=== PATIENT | female | born 1975 | race Caucasian/White ===

== ENCOUNTER → 2017-05-13 09:46 | Outpatient (CLI) | payer OTHER, SELFPAY ==
--- NOTE | 2017-05-13 09:52 | MM_ITS ---
MM Dig SC mamm implant BI CAD CAD Screening COMPARISON: None, this is baseline INDICATION: There is no personal or family history of breast cancer. Patient has bilateral breast implants. TECHNIQUE: Standard CC and MLO images were obtained. R2 CAD reviewed. FINDINGS: Standard MLO and CC views were obtained along with Fidelina views as well. The bilateral breast implants are noted both intact with no evidence of leakage. Mild heterogenic fibroglandular densities are seen in the [place] breast tissue around the implants. There is a single more marker on each breast. There is a benign-appearing calcification right breast. There is no suspicious lesion and there are no suspicious microcalcifications. IMPRESSION: Moderate breast density with intact breast implants as noted and no suspicious lesion seen BI-RADS Category: 2 Benign Finding(s) RECOMMENDED FOLLOW-UP: 1YR - 1 YEAR FOLLOW-UP (A letter has been sent to the patient regarding results of the study.)
== END ==
PROVIDERS: Family Provider Family Medicine; PCP Family Medicine; Visit Provider Nurse Practitioner Obstetrics & Gynecology
DX: Z12.31 Encounter for screening mammogram for malignant neoplasm of breast (principal)
CPT/HCPCS: 77067

== ENCOUNTER → 2018-07-17 11:34 | Outpatient (CLI) | payer OTHER, SELFPAY ==
--- NOTE | 2018-07-17 11:46 | XR_ITS ---
XR chest 2V HISTORY: ITS.REASON: DYSPNEA ON EXERTION ORDERING PHYSICIAN: Darell Dickson MD PATIENT AGE: 43 years COMPARISON: None FINDINGS: The cardiomediastinal silhouette and pulmonary vascularity are within normal limits. The lungs are clear without infiltrates, suspicious nodules, or pleural effusions. No acute bony abnormalities. IMPRESSION: Negative chest, no acute finding
[2018-07-17 12:41] LABS: Basophils % 0.3 % (0.1-2.0); Eosinophils # 0.1 K/mm3 (0.0-0.4); Eosinophils % 0.7 % (0.1-12.0); Hematocrit 37.9 % (37.0-47.0); Hemoglobin 12.7 g/dL (12.2-16.2); Lymphocytes % 28.5 % (10-50); Mean Corpuscular HGB Conc 33.4 g/dL (31.8-35.4); Mean Corpuscular Hemoglobin 30.3 pg (27.0-31.2); Mean Corpuscular Volume 90.8 fl (81-99); Mean Platelet Volume 7.1 fl (7.4-10.4); Monocytes # 0.3 K/mm3 (0.1-1.0); Monocytes % 4.5 % (1.7-9.3); Neutrophils # 4.7 K/mm3 (1.8-7.8); Platelet Count 298 K/mm3 (142-424); Red Blood Count 4.17 M/mm3 (4.20-5.40); White Blood Count 7.1 K/mm3 (4.8-10.8)
[2018-07-17 15:14] LABS: Alanine Aminotransferase 22 U/L (12-78); Albumin Level 3.5 gm/dL (3.4-5.0); Albumin/Globulin Ratio 0.9 (1.1-1.8); Alkaline Phosphatase 64 U/L (46-116); Anion Gap 12.4 mEq/L (5-15); Aspartate Amino Transferase 22 U/L (15-37); Bilirubin,Total 0.3 mg/dL (0.2-1.0); Blood Urea Nitrogen 15 mg/dL (7-18); Calcium 8.8 mg/dL (8.5-10.1); Carbon Dioxide 28 mmol/L (21.0-32.0); Chloride 103 mmol/L (98-107); Creatinine,Serum 0.92 mg/dL (0.55-1.02); Estimated Glomerular Filt Rate 67 ml/min (>60); GFR (African American) 81 ML/MIN (>60); Globulin 3.7 gm/dl (1.3-3.2); Glucose 92 mg/dL (74-106); Magnesium 1.9 mg/dL (1.4-2.2); Potassium 4.4 mmoL/L (3.5-5.1); Sodium 139 mmol/L (136-145); Thyroid Stimulating Hormone 1.77 uIU/ml (0.358-3.740); Total Protein,Serum 7.2 gm/dL (6.4-8.2)
== END ==
PROVIDERS: Visit Provider Internal Medicine Adolescent Medicine
DX: R30.0 Dysuria (principal); R06.09 Other forms of dyspnea; R42 Dizziness and giddiness
CPT/HCPCS: 36415; 71046; 80053; 83735; 84443; 85025; 87086; 87088; 87186

== ENCOUNTER → 2019-09-29 07:44 | Outpatient (CLI) | payer BC, SELFPAY ==
--- NOTE | 2019-09-29 07:49 | MM_ITS ---
PROCEDURE: MM DIG MAMM DX BI IMPLANT CAD Digital Breast Tomosynthesis Included CLINICAL INDICATION: SCREENING There is a history of breast cancer patient's maternal grandmother diagnosed after menopause. The patient has bilateral breast implants. COMPARISON: SCIMPBI MM Dig SC mamm implant BI CAD from 05/13/2017 TECHNIQUE: Standard CC and MLO images and 3D Tomosynthesis was obtained. R2 CAD reviewed. FINDINGS: Standard views of both breast were obtained along with Fidelina views. Both breast implants appear intact with no evidence of leakage. There is minor crinkling of the border of the left breast implant. There is moderate heterogenic fibroglandular densities in the [place] breast tissue around each implant stable unchanged in appearance from the previous exam. There is a benign-appearing calcification right breast. There is no suspicious lesion in either breast and no suspicious microcalcifications. IMPRESSION: Stable exam with no suspicious lesions seen BI-RAD Category: 2 Benign Finding(s) FOLLOW-UP: 1YR 1 Year Follow-up (A letter has been sent to the patient regarding results of the study.) Dictated by: Dr. Jose Daniel Rodriguez MD 10/01/2019 08:[address] Jose Daniel Rodriguez MD in [place] 10/01/2019 08:37
== END ==
PROVIDERS: PCP Family Medicine; Visit Provider Family Medicine
DX: Z12.39 Encounter for other screening for malignant neoplasm of breast (principal)
CPT/HCPCS: 77062; 77066; G0279

== ENCOUNTER 2020-09-08 11:18 | Emergency (ER) | payer BC, SELFPAY ==
[2020-09-08 11:19] VITALS: BP 122/80; PULSE 85; RESP 18; TEMP 36.9; O2SAT 98; BMI 23.3
[2020-09-08 11:34] LABS: Apearance,Urine Cloudy (Clear); Color,Urine Yellow (Yellow)
[2020-09-08 11:35] LABS: Bilirubin,Urine Negative (Negative); Blood, Urine 4+ (Negative); Glucose,Urine (UA) Negative (Negative); Ketones,Urine Negative (Negative); PH,Urine 6.5 (5.0-8.5); Protein,Urine 1+ (Negative); UTC Leukocyte Esterase,Urine 2+ (Negative); Urobilinogen,Urine 1 EU/dl (0.2)
[2020-09-08 11:36] LABS: UTC Nitrate,Urine Negative (Negative)
[2020-09-08 11:39] VITALS: BP 120/79; PULSE 82; RESP 18; TEMP 36.9
--- NOTE | 2020-09-08 11:45 | HMH.EDUTC ---
[facility] – [place] Disposition Clinical Impression: UTI (urinary tract infection) Qualifiers: Urinary tract infection type: site unspecified Hematuria presence: without hematuria Qualified Code(s): N39.0 - Urinary tract infection, site not specified Disposition: Home, Self-Care Condition on Discharge: Good Instructions: Urinary Tract Infection, DI for Urinary Tract Infection (UTI) Additional Instructions: Drink plenty of fluids. Take tylenol or ibuprofen for pain or fever. Take the medications as directed. Follow up with your regular doctor. GO TO THE ER FOR ANY WORSENING SYMPTOMS The pyridium will make your urine turn orange, this is an expected side effect. It will stain your clothes if it comes into contact with them Prescriptions: Sulfamethoxazole/Trimethoprim [Bactrim DS tablet] 1 each PO BID 7 Days #14 tab Transmission Status: Received by [facility] Fluconazole [Diflucan 150mg tab] 150 mg PO ONCE #1 tab Transmission Status: Received by [facility] Phenazopyridine HCl [Pyridium 200mg Tablet] 200 pow PO TID #6 tab Transmission Status: Received by [facility] Referrals: Darell Mackay MD [Primary Care Provider] - Time of Disposition: 11:49 Medical Decision Making - Medical Records Medical records reviewed: No: I reviewed the patient's medical records. - Blas Inquiry Pt receiving controlled substance: No Vital Signs: 09/08/20 11:19 09/08/20 11:39 Temperature 98.4 F 98.4 F Temperature Source Oral Pulse Rate 82 Pulse Rate [Right] 85 Respiratory Rate 18 18 Blood Pressure 120/79 Blood Pressure [Right Arm] 122/80 Blood Pressure Mean [Right Arm] 94 Blood Pressure Source [Right Arm] Automatic Cuff Blood Pressure Position [Right Arm] Sitting 02 Sat by Pulse Oximetry 98 Oxygen Delivery Method Room Air - Lab Data Lab results reviewed: Yes: I reviewed the patient's lab results. Lab Results 09/08/20 11:30: Urine Color Yellow, Urine Appearance Cloudy, Urine pH 6.5, Ur Specific [place] 1.020, Urine Protein 1+, Urine Glucose (UA) Negative, Urine Ketones Negative, Urine Blood 4+, Urine Nitrate Negative, Urine Bilirubin Negative, Urine Urobilinogen 1, Ur Leukocyte Esterase 2+ A Orders (Tests/Meds): ORDERS Category Date Time Status Urine Culture Stat Micro 09/08/20 11:38 Results [facility] [place] HPI - General Stated complaint: possible UTI Time Seen by Provider: 09/08/20 11:46 Mode of Arrival: Ambulatory Source of Information: Patient Limitations: No Limitations Description of Symptoms (Recalled from Triage Doc. by RN): pt c/o of pain with urinating. pt also states shes been having yeast infections. she has completed the monistat tx, but would like some diflucan. HEENT Symptoms (Recalled from RN notes): No Resp Symptoms (Recalled from RN notes): No Skin Symptoms (Recalled from RN notes): No MS Symptoms (Recalled from RN notes): No Functional Status (Recalled from RN notes): na - History of Present Illness Provider Complaint: She states that for the past 2 days she has had burning with urination. - Related Data Previous Rx's Medication Instructions Recorded Fluconazole [Diflucan 150mg tab] 150 mg PO ONCE #1 tab 09/08/20 Phenazopyridine HCl [Pyridium 200 pow PO TID #6 tab 09/08/20 200mg Tablet] Sulfamethoxazole/Trimethoprim 1 each PO BID 7 Days #14 tab 09/08/20 [Bactrim DS tablet] Allergies Allergy/AdvReac Type Severity Reaction Status Date / Time No Known Allergies Allergy Verified 09/08/20 11:20 - Worker's Comp Is this a Worker's Comp case?: No [facility] History - Hepatitis A Screen Drug use history?: No High risk sexual behaviors?: No History of sexually transmitted infection?: No Currently employed?: No Childcare worker?: No Do you have indoor plumbing?: Yes Do you have electricity?: Yes Attestation statement:: This patient has been screened for Hepatitis A risk factors. I have reviewed the patient's past medica
== END 2020-09-08 11:54 | disposition home or self-care (01) ==
PROVIDERS: Emergency Provider Nurse Practitioner Family; PCP Family Medicine
DX: N39.0 Urinary tract infection, site not specified (principal)
CPT/HCPCS: 81003; 87086; 87088; 87186; 99202; G0463

== ENCOUNTER 2020-10-13 15:07 | Emergency (ER) | payer BC, SELFPAY ==
[2020-10-13 15:10] VITALS: BP 137/80; PULSE 81; RESP 18; TEMP 36.9; O2SAT 99; BMI 21.6
--- NOTE | 2020-10-13 15:23 | HMH.EDUTC ---
[facility] – [place] Disposition Clinical Impression: UTI (urinary tract infection) Qualifiers: Urinary tract infection type: acute cystitis Hematuria presence: with hematuria Qualified Code(s): N30.01 - Acute cystitis with hematuria Disposition: Home, Self-Care Condition on Discharge: Good Instructions: DI for Urinary Tract Infection (UTI) Additional Instructions: Increase fluids, water and not soda or tea. Can drink cranberry juice or cranberry extract. White front to back Wear cotton underwear Empty bladder after intercourse Start antibiotics immediately and make sure you take the full course although you may start to see improvement over the next 48 hours. You can eat yogurt or take probiotics to decrease diarrhea or yeast infection caused by the antibiotic Be sure to follow-up anytime for new or worsening symptoms in 48 hours for wound urine culture results be sure to let you PCP no recent urine for culture so they can request records and ensure that you have appropriate antibiotic if you are not getting better or getting worse. If symptoms worsen or do not improve return or be seen in the ER. Follow-up with primary care this week. Prescriptions: cephALEXin [Cephalexin 500mg Tab] 500 mg PO BID 7 Days #14 tab Prescription Printed Fluconazole [Diflucan 100mg tablet] 100 mg PO ONCE 1 Days #2 tab Prescription Printed Referrals: Darell Mackay MD [Primary Care Provider] - Time of Disposition: 15:35 Medical Decision Making - Blas Inquiry Pt receiving controlled substance: No Vital Signs: 10/13/20 15:10 10/13/20 15:28 Temperature 98.4 F 98.4 F Temperature Source Oral Pulse Rate 81 Pulse Rate [Right Brachial] 81 Respiratory Rate 18 18 Blood Pressure 137/80 Blood Pressure [Right Arm] 137/80 Blood Pressure Mean [Right Arm] 99 Blood Pressure Source [Right Arm] Automatic Cuff Blood Pressure Position [Right Arm] Sitting 02 Sat by Pulse Oximetry 99 Oxygen Delivery Method Room Air Orders (Tests/Meds): ORDERS Category Date Time Status Urine Culture Stat Micro 10/13/20 15:22 Ordered [facility] [place] HPI - General Chief complaint: Urgent Treatment Center Stated complaint: poss UTI Time Seen by Provider: 10/13/20 15:23 Mode of Arrival: Ambulatory Source of Information: Patient Limitations: No Limitations Description of Symptoms (Recalled from Triage Doc. by RN): PATIENT C/O FREQUENT AND PAINFUL URINATION X 2 DAYS HEENT Symptoms (Recalled from RN notes): No Resp Symptoms (Recalled from RN notes): No Skin Symptoms (Recalled from RN notes): No MS Symptoms (Recalled from RN notes): No Functional Status (Recalled from RN notes): WNL - History of Present Illness Provider Complaint: 45 yr old female presents for burning with urination,freq, urgentancy, and pain with urination - Related Data Previous Rx's Medication Instructions Recorded Fluconazole [Diflucan 150mg tab] 150 mg PO ONCE #1 tab 09/08/20 Phenazopyridine HCl [Pyridium 200 pow PO TID #6 tab 09/08/20 200mg Tablet] Sulfamethoxazole/Trimethoprim 1 each PO BID 7 Days #14 tab 09/08/20 [Bactrim DS tablet] Fluconazole [Diflucan 100mg tablet] 100 mg PO ONCE 1 Days #2 tab 10/13/20 cephALEXin [Cephalexin 500mg Tab] 500 mg PO BID 7 Days #14 tab 10/13/20 Allergies Allergy/AdvReac Type Severity Reaction Status Date / Time No Known Allergies Allergy Verified 09/08/20 11:20 - Worker's Comp Is this a Worker's Comp case?: No [facility] History - Hepatitis A Screen Drug use history?: No High risk sexual behaviors?: No History of sexually transmitted infection?: No Currently employed?: No Childcare worker?: No Do you have indoor plumbing?: Yes Do you have electricity?: Yes Attestation statement:: This patient has been screened for Hepatitis A risk factors. I have reviewed the patient's past medical history: Yes - Social History Alcohol Intake: never Occupational Status: other ROS Obtained: Yes Systems reviewed as appropriate & no additio
[2020-10-13 15:28] VITALS: BP 137/80; PULSE 81; RESP 18; TEMP 36.9; O2SAT 99
[2020-10-13 15:48] LABS: Apearance,Urine Clear (Clear); Bilirubin,Urine Negative (Negative); Blood, Urine 2+ (Negative); Color,Urine Dark Yellow (Yellow); Glucose,Urine (UA) Negative (Negative); Ketones,Urine Negative (Negative); Protein,Urine Negative (Negative); UTC Leukocyte Esterase,Urine Trace (Negative); UTC Nitrate,Urine Negative (Negative); Urobilinogen,Urine 0.2 EU/dl (0.2)
== END 2020-10-13 15:40 | disposition home or self-care (01) ==
PROVIDERS: Emergency Provider Nurse Practitioner Family; PCP Family Medicine
DX: N30.01 Acute cystitis with hematuria (principal)
CPT/HCPCS: 81003; 87086; 87088; 87186; 99202; G0463

== ENCOUNTER 2020-11-09 21:18 | Emergency (ER) | payer BC, SELFPAY ==
[2020-11-09 21:19] VITALS: BP 125/85; PULSE 82; RESP 16; TEMP 37; O2SAT 96; BMI 20.7
[2020-11-09 22:36] LABS: Microscopic, Urine URINE MICROSCOPIC (MICROSCOPIC)
[2020-11-09 22:38] LABS: Appearance,Urine CLOUDY (Clear); Bilirubin,Urine Negative (Negative); Blood, Urine 2+ (Negative); Color,Urine YELLOW (Yellow); Glucose,Urine (UA) Negative (Negative); Ketones,Urine Negative (Negative); Leukocyte Esterase,Urine 1+ (Negative); Nitrate,Urine POSITIVE (Negative); Protein,Urine 2+ (Negative); Specific Gravity, Urine >= 1.030 (1.005-1.030); Urobilinogen,Urine 0.2 EU/dl (0.2)
[2020-11-09 22:54] LABS: Bacteria,Urine 2+ /lpf; RBC,Urine 20-50 #/hpf (0-3); WBC,Urine 50-100 #/hpf (0-3)
--- NOTE | 2020-11-09 23:20 | HMH.EDGENADL ---
ED Disposition Clinical Impression: Pyelonephritis UTI (urinary tract infection) Qualifiers: Urinary tract infection type: acute cystitis Hematuria presence: with hematuria Qualified Code(s): N30.01 - Acute cystitis with hematuria Disposition: Home, Self-Care Condition on Discharge: Good Instructions: DI for Urinary Tract Infection (UTI), DI for Urinary Tract Infection in Children Prescriptions: Cefdinir [Omnicef 300mg Capsule] 300 mg PO BID #20 cap Transmission Status: [facility] to [facility] Ondansetron [Zofran 4mg ODT] 4 mg PO TIDP PRN 3 Days #12 tab PRN Reason: Nausea Transmission Status: Pending to [facility] Referrals: Darell Dickson MD [Primary Care Provider] - - Critical Care Critical Care Time: No Attestation: On 11/09/20, the high probability of a clinically significant, sudden or life threatening deterioration of the following system(s) required my full and direct attention, intervention and personal management. The time I documented below is in addition to time spent performing reported procedures but includes the following listed in this critical care notation. Medical Decision Making - Blas Inquiry Pt receiving controlled substance: No Vital Signs: 11/09/20 21:19 Temperature 98.6 F Temperature Source Oral Pulse Rate [Right Brachial] 82 Respiratory Rate 16 Blood Pressure [Right Arm] 125/85 Blood Pressure Mean [Right Arm] 98 02 Sat by Pulse Oximetry 96 Oxygen Delivery Method Room Air - Lab Data Lab Results 11/09/20 21:24: Urine Color Yellow, Urine Appearance Cloudy, Urine pH 6.0, Ur Specific [place] >= 1.030, Urine Protein 2+, Urine Glucose (UA) Negative, Urine Ketones Negative, Urine Blood 2+, Urine Nitrate Positive, Urine Bilirubin Negative, Urine Urobilinogen 0.2, Ur Leukocyte Esterase 1+ A, Urine RBC 20-50, Urine WBC 50-100, Ur Squamous Epith Cells 3-5, Urine Bacteria 2+ Orders (Tests/Meds): ED MEDICATIONS Discontinued Medications Generic Name Dose Route Start Last Admin Trade Name Freq PRN Reason Stop Dose Admin Ibuprofen 800 mg 11/09/20 22:31 11/09/20 22:35 Ibuprofen 400 Mg Tablet PO 11/09/20 22:32 800 mg ONCE ONE Administration ORDERS Category Date Time Status Urine Culture Stat Micro 11/09/20 21:24 Received Medical Decision Narrative: The patient is a 45-year-old female who presents to the emergency department with suprapubic pain, dysuria, frequency, urgency for 1-1/2 weeks and right flank pain for 1 day. Differential gnosis includes cystitis, pyelonephritis, or lithiasis. Given this plan to obtain urinalysis. Patient is overall very well-appearing with stable vital signs. She is afebrile. Urinalysis shows evidence of a urinary tract infection. Given the patient's history and appearance I have low suspicion for nephrolithiasis and believe hematuria is due to a urinary tract infection. She has tubal ligation. The patient will be discharged with cefdinir and Zofran for nausea. She was given strict return precautions. Will follow up with her primary care doctor. General Adult HPI - General Chief complaint: Urogenital-Female Stated complaint: possible uti or kidney infection Time Seen by Provider: 11/09/20 22:21 Mode of Arrival: Ambulatory Source of Information: Patient Limitations: No Limitations Description of Symptoms (Recalled from ER Triage Doc. by RN): pt here for possible UTI, c/o pain in lower back and left side. has significant hx of UTI's - History of Present Illness HPI narrative: 45-year-old female who presents to the emergency department with 1 and half weeks of dysuria, urgency, frequency and lower abdominal cramping. She reports today that she also developed right flank pain. She has had 3 UTIs in the last few months. She denies fever or chills. She is tolerating normal p.o. - Related Data Previous Rx's Medication Instructions Recorded Cefdinir [Omnicef 300mg Capsule]
[2020-11-09 23:39] VITALS: BP 124/74; PULSE 85; RESP 16; TEMP 37; O2SAT 99
== END 2020-11-09 23:40 | disposition home or self-care (01) ==
PROVIDERS: Emergency Provider Emergency Medicine; PCP Internal Medicine Adolescent Medicine
DX: N12 Tubulo-interstitial nephritis, not specified as acute or chronic (principal); N30.01 Acute cystitis with hematuria
CPT/HCPCS: 81001; 87086; 87088; 87186; 99282

== ENCOUNTER 2020-12-08 14:09 | Emergency (ER) | payer BC, SELFPAY ==
[2020-12-08 16:00] VITALS: BP 119/72; PULSE 91; RESP 18; TEMP 36.9; O2SAT 99; BMI 21.6
--- NOTE | 2020-12-08 16:32 | HMH.EDUTC ---
[facility] [place] Impression: UTI (urinary tract infection) Qualifiers: Urinary tract infection type: site unspecified Hematuria presence: with hematuria Qualified Code(s): N39.0 - Urinary tract infection, site not specified Disposition: Home, Self-Care Condition on Discharge: Good Instructions: Urinary Tract Infection, DI for Urinary Tract Infection (UTI), Nitrofurantoin Additional Instructions: *Increase fluids. Water not Soda or Tea *Start antibiotic immediately and be sure to take as ordered for the FULL length of time although you should start to see improvement over the next 48 hours *Pyridium as needed Remember this medication will turn your urine [place]. This is normal but it will stain what ever it gets on *You should not use Pyridium for more than 48 hours. If so , follow up with your primary physician to review urine culture and ensure that antibiotic is adequate for infection *Be SURE to follow up anytime for new or worsening symptoms with your family doctor. AND in 48 hours for urine culture results with your family doctor, if you do not have a doctor then you may call back to the [facility] for urine culture results and further treatment. We do recommend that you choose and establish care with a Primary Care Physician. AND follow up with them in 10-14 days to repeat UA to ensure infection is resolved and blood no longer present *Be sure to let your PCP know that we sent urine cultures from the [facility] so they can follow up to ensure that you area the on the correct antibiotic Call your doctor office and make appointment for 48 hours (2 days from today) to follow up and get the results of your urine culture and further treatment Prescriptions: Nitrofurantoin Monohyd/M-Cryst [Macrobid 100 mg Capsule] 100 mg PO BID 10 Days #20 cap Transmission Status: Pending to [id number] Phenazopyridine HCl [Pyridium 200mg Tablet] 200 pow PO TID #6 tab Transmission Status: Pending to [id number] Referrals: Darell Mackay MD [Primary Care Provider] - As needed Time of Disposition: 16:39 Medical Decision Making - Blas Inquiry Pt receiving controlled substance: No Blas was queried for this patient: No Vital Signs: 12/08/20 16:00 Temperature 98.5 F Temperature Source Oral Pulse Rate [Right Brachial] 91 H Respiratory Rate 18 Blood Pressure [Right Arm] 119/72 Blood Pressure Mean [Right Arm] 87 Blood Pressure Source [Right Arm] Automatic Cuff Blood Pressure Position [Right Arm] Sitting 02 Sat by Pulse Oximetry 99 Oxygen Delivery Method Room Air - Lab Data Lab results reviewed: Yes: I reviewed the patient's lab results. [facility] [place] - General Stated complaint: possible UTI Time Seen by Provider: 12/08/20 16:33 Mode of Arrival: Ambulatory Source of Information: Patient Limitations: No Limitations Description of Symptoms (Recalled from Triage Doc. by RN): PATIENT STATES SHE HAS HAD A UTI EACH MONTH FOR THE LAST 4 MONTHS. C/O CONSTANT ITCHING TO [place] AREA HEENT Symptoms (Recalled from RN notes): No Resp Symptoms (Recalled from RN notes): No Skin Symptoms (Recalled from RN notes): No MS Symptoms (Recalled from RN notes): No Functional Status (Recalled from RN notes): WNL - History of Present Illness Provider Complaint: Patient states that she has been having UTI on and off for the last few months and has taken several different medications but feels like it is not clearing up well States that she has burning with urination and feeling of discomfort after and today she was still having discomfort so she came in to get checked again - Related Data Previous Rx's Medication Instructions Recorded Cefdinir [Omnicef 300mg Capsule] 300 mg PO BID #20 cap 11/09/20 Ondansetron [Zofran 4mg ODT] 4 mg PO TIDP PRN 3 Days #12 tab 11/09/20 Nitrofurantoin Monohyd/M-Cryst 100 mg PO BID 10 Days #20 cap 12/08/20 [Macrobid 100 mg Capsule] Phenazopyridine HCl [Pyridium 200 pow PO TID #6 tab 12/08/20 200
[2020-12-08 16:43] VITALS: BP 119/72; PULSE 91; RESP 18; TEMP 36.9; O2SAT 99
[2020-12-08 21:05] LABS: Apearance,Urine Clear (Clear); Blood, Urine Trace (Negative); Color,Urine Yellow (Yellow); Glucose,Urine (UA) Negative (Negative); Ketones,Urine TRACE (Negative); Protein,Urine Negative (Negative)
[2020-12-08 21:06] LABS: Bilirubin,Urine Negative (Negative); UTC Leukocyte Esterase,Urine Negative (Negative); UTC Nitrate,Urine Positive (Negative); Urobilinogen,Urine 1 EU/dl (0.2)
== END 2020-12-08 16:48 | disposition home or self-care (01) ==
PROVIDERS: Emergency Provider Nurse Practitioner; PCP Family Medicine
DX: N30.00 Acute cystitis without hematuria (principal)
CPT/HCPCS: 81003; 87086; 87088; 87186; 99202; G0463

== ENCOUNTER 2021-01-03 16:17 | Emergency (ER) | payer BC, SELFPAY ==
[2021-01-03 16:50] VITALS: BP 96/72; PULSE 77; RESP 20; TEMP 36.9; O2SAT 100; BMI 20.9
--- NOTE | 2021-01-03 17:01 | HMH.EDUTC ---
[facility] [place] Clinical Impression: UTI (urinary tract infection) Qualifiers: Urinary tract infection type: site unspecified Hematuria presence: with hematuria Qualified Code(s): N39.0 - Urinary tract infection, site not specified Disposition: Home, Self-Care Condition on Discharge: Good Instructions: Urinary Tract Infection, DI for Urinary Tract Infection (UTI), Phenazopyridine Additional Instructions: Drink plenty of fluids. Take tylenol or ibuprofen for pain or fever. Take the medications as directed. Follow up with your regular doctor. GO TO THE ER FOR ANY WORSENING SYMPTOMS The pyridium will make your urine turn orange, this is an expected side effect. It will stain your clothes if it comes into contact with them. I put in a referral to urology. It is time to go see one after this much trouble with UTI's. Dr. Ibrahim's office number will be on this paperwork. Please call him and get an appointment. Drink plenty of fluids. Try to go urinate every 2 hours or so, even if you don't feel the urge. Drink a glass of cranberry juice every day. Once you finish this round of antibiotic you need to get your urine cultured again to make sure the infection is gone. If it is not gone then you may need more medicine or other treatments to get rid of it. Prescriptions: Ciprofloxacin HCl [Cipro 500mg Tab] 500 mg PO BID 14 Days #28 tab Transmission Status: Received by [facility] Fluconazole [Diflucan 150mg tab] 150 mg PO ONCE #1 tab Transmission Status: Received by [facility] Phenazopyridine HCl [Pyridium 200mg Tablet] 200 pow PO TID #6 tab Transmission Status: Received by [facility] Referrals: Darell Mackay MD [Primary Care Provider] - Hector Ibrahim MD [Staff Physician] - Time of Disposition: 17:33 Medical Decision Making - Medical Records Medical records reviewed: No: I reviewed the patient's medical records. - Blas Inquiry Pt receiving controlled substance: No Vital Signs: 01/03/21 16:50 01/03/21 17:35 Temperature 98.5 F 98.5 F Temperature Source Oral Pulse Rate 77 Pulse Rate [Right Brachial] 77 Respiratory Rate 20 20 Blood Pressure 96/72 L Blood Pressure [Right Arm] 96/72 L Blood Pressure Mean [Right Arm] 80 Blood Pressure Source [Right Arm] Automatic Cuff Blood Pressure Position [Right Arm] Sitting 02 Sat by Pulse Oximetry 100 Oxygen Delivery Method Room Air - Lab Data Lab results reviewed: Yes: I reviewed the patient's lab results. Lab Results 01/03/21 17:09: Urine Color Yellow, Urine Appearance Clear, Urine pH 6.0, Ur Specific [place] 1.010, Urine Protein Negative, Urine Glucose (UA) Negative, Urine Ketones Negative, Urine Blood Trace, Urine Nitrate Positive A, Urine Bilirubin Negative, Urine Urobilinogen 0.2, Ur Leukocyte Esterase Negative Orders (Tests/Meds): ED MEDICATIONS Discontinued Medications Generic Name Dose Route Start Last Admin Trade Name Freq PRN Reason Stop Dose Admin Ceftriaxone Sodium 1 gm 01/03/21 17:28 01/03/21 17:35 Ceftriaxone 1gm Vial IM 01/03/21 17:29 1 gm ONCE ONE Administration Lidocaine HCl 0 ml 01/03/21 17:28 01/03/21 17:35 Lidocaine 1% 5ml Pf Vial IM 01/03/21 17:29 2.1 ml ONCE ONE Administration [facility] [place] - General Stated complaint: possible uti Time Seen by Provider: 01/03/21 17:01 - History of Present Illness Provider Complaint: She states that she has basically had a constant uti since September of this year. She has been treated 4 times with antibiotics. She states that she never gets completly better, then her symptoms worsen once she is off the antibiotics. She had 1 episode of pylonephritis during this time also. - Related Data Previous Rx's Medication Instructions Recorded Cefdinir [Omnicef 300mg Capsule] 300 mg PO BID #20 cap 11/09/20 Ondansetron [Zofran 4mg ODT] 4 mg PO TIDP PRN 3 Days #12 tab 11/09/20 Nitrofurantoin Monohyd/M-Cry
[2021-01-03 17:21] LABS: Apearance,Urine Clear (Clear); Bilirubin,Urine Negative (Negative); Blood, Urine Trace (Negative); Color,Urine Yellow (Yellow); Glucose,Urine (UA) Negative (Negative); Ketones,Urine Negative (Negative); Protein,Urine Negative (Negative); UTC Leukocyte Esterase,Urine Negative (Negative); UTC Nitrate,Urine Positive (Negative); Urobilinogen,Urine 0.2 EU/dl (0.2)
[2021-01-03 17:35] VITALS: BP 96/72; PULSE 77; RESP 20; TEMP 36.9; O2SAT 100
== END 2021-01-03 17:50 | disposition home or self-care (01) ==
PROVIDERS: Emergency Provider Nurse Practitioner Family; PCP Family Medicine
DX: N12 Tubulo-interstitial nephritis, not specified as acute or chronic (principal); N39.0 Urinary tract infection, site not specified
CPT/HCPCS: 81003; 96372; 99202; G0463

== ENCOUNTER → 2021-01-21 15:33 | Outpatient (CLI) | payer BC, SELFPAY | PROVIDERS: Visit Provider Urology | DX: N39.0 Urinary tract infection, site not specified (principal) | CPT/HCPCS: 87086 ==

== ENCOUNTER → 2021-02-20 12:50 | Outpatient (CLI) | payer BC, SELFPAY | PROVIDERS: Visit Provider Urology | DX: U07.1 COVID-19 (principal) | CPT/HCPCS: C9803; U0003; U0005 ==

== ENCOUNTER 2021-03-15 07:52 | Day surgery (SDC) | payer BC, SELFPAY ==
[2021-02-18 14:20] VITALS: BMI 20.9
[2021-03-15 08:07] VITALS: BP 124/72; PULSE 90; RESP 18; TEMP 36.7; O2SAT 100
[2021-03-15 09:16] LABS: Microscopic, Urine URINE MICROSCOPIC (MICROSCOPIC)
[2021-03-15 09:23] VITALS: BP 113/80; PULSE 80; RESP 16; TEMP 36.4; O2SAT 100
[2021-03-15 09:26] LABS: Appearance,Urine CLEAR (Clear); Bilirubin,Urine Negative (Negative); Blood, Urine TRACE-I (Negative); Color,Urine YELLOW (Yellow); Glucose,Urine (UA) Negative (Negative); Ketones,Urine Negative (Negative); Leukocyte Esterase,Urine Negative (Negative); Nitrate,Urine Negative (Negative); Protein,Urine Negative (Negative); Urobilinogen,Urine 0.2 EU/dl (0.2)
[2021-03-15 09:45] LABS: Squamous Epithelial Cell,Urine Occasional #/hpf (0-5)
--- NOTE | 2021-03-15 10:08 | HMH.OPNOTE ---
Date of procedure: 03/15/21 Pre-op Diagnosis:: Recurring urinary tract infections Post-op Diagnosis:: Recurring urinary tract infections Procedure performed:: Cystourethroscopy Surgeon:: Hector Ibrahim MD Anesthesia: local Estimated blood loss (mL): 0 Clinical Note:: 45-year-old white female with 5 documented E. coli infections this year presents for cystoscopic evaluation. Operative findings:: No bladder or urethral abnormalities noted. Operative note:: Patient taken to the operating suite after informed consent was obtained. On the stretcher she was placed in the frog-leg position and prepped and draped in the standard surgical fashion. 2% lidocaine placed into the urethra and after 5 minutes the flexible cystoscope introduced into the urethra and into the bladder without difficulty. The bladder was examined in a systematic fashion. There is no evidence of mucosal abnormalities, stones, trabeculation or diverticula. The ureteral orifices in their normal anatomic position with clear efflux of urine. Scope was retroflexed showing no abnormalities of the bladder neck. Bladder neck did appear normal as did the rest of the urethra. The scope was removed the patient tolerated the procedure well there are no complications. Condition: stable Disposition: same day Specimens:: None Complications:: None
== END 2021-03-15 09:29 | disposition home or self-care (01) ==
LOC: OUTP 07:56
PROVIDERS: PCP Family Medicine; Visit Provider Urology
PROC: (CPT 52000; principal; 2021-03-15 09:00)
DX: N39.0 Urinary tract infection, site not specified (principal); Z87.440 Personal history of urinary (tract) infections
CPT/HCPCS: 52000; 81001; 87086

== ENCOUNTER 2021-10-17 15:59 | Emergency (ER) | payer BC, SELFPAY ==
[2021-10-17 16:15] VITALS: BP 121/78; PULSE 86; RESP 16; TEMP 36.8; O2SAT 98; BMI 21.6
--- NOTE | 2021-10-17 16:24 | HMH.EDUTC ---
[place] Disposition Clinical Impression: UTI (urinary tract infection) Qualifiers: Urinary tract infection type: site unspecified Hematuria presence: without hematuria Qualified Code(s): N39.0 - Urinary tract infection, site not specified Disposition: Home, Self-Care Condition on Discharge: Good Instructions: Urinary Tract Infection, DI for Urinary Tract Infection (UTI), Cefdinir Additional Instructions: *Increase fluids. Water not Soda or Tea *Start antibiotic immediately and be sure to take as ordered for the FULL length of time although you should start to see improvement over the next 48 hours *Pyridium as needed Remember this medication will turn your urine [place]. This is normal but it will stain what ever it gets on *You should not use Pyridium for more than 48 hours. If so , follow up with your primary physician to review urine culture and ensure that antibiotic is adequate for infection *Be SURE to follow up anytime for new or worsening symptoms with your family doctor. AND in 48 hours for urine culture results with your family doctor, if you do not have a doctor then you may call back to the [facility] for urine culture results and further treatment. We do recommend that you choose and establish care with a Primary Care Physician. AND follow up with them in 10-14 days to repeat UA to ensure infection is resolved and blood no longer present *Be sure to let your PCP know that we sent urine cultures from the [facility] so they can follow up to ensure that you area the on the correct antibiotic Call your doctor office and make appointment for 48 hours (2 days from today) to follow up and get the results of your urine culture and further treatment Prescriptions: Fluconazole [Diflucan 150mg tab] 150 mg PO ONCE #1 tab Transmission Status: Pending to [facility] Cefdinir [Omnicef 300mg Capsule] 300 mg PO BID 7 Days #14 cap Transmission Status: Pending to [facility] Phenazopyridine HCl [Pyridium 200mg Tablet] 200 pow PO TID #6 tab Transmission Status: Pending to [facility] Referrals: Provider,Referral, MD [Primary Care Provider] - As needed Time of Disposition: 16:36 Medical Decision Making - Blas Inquiry Pt receiving controlled substance: No Blas was queried for this patient: No Vital Signs: 10/17/21 16:15 Temperature 98.2 F Temperature Source Oral Pulse Rate [Left Brachial] 86 Respiratory Rate 16 Blood Pressure [Left Arm] 121/78 Blood Pressure Mean [Left Arm] 92 Blood Pressure Source [Left Arm] Automatic Cuff Blood Pressure Position [Left Arm] Sitting 02 Sat by Pulse Oximetry 98 Oxygen Delivery Method Room Air - Lab Data Lab results reviewed: Yes: I reviewed the patient's lab results. Lab Results 10/17/21 16:16: Urine Color Yellow, Urine Appearance Cloudy, Urine pH 6.0, Ur Specific [place] 1.020, Urine Protein Negative, Urine Glucose (UA) Negative, Urine Ketones Negative, Urine Blood Trace, Urine Nitrate Positive A, Urine Bilirubin Negative, Urine Urobilinogen 0.2, Ur Leukocyte Esterase Trace Orders (Tests/Meds): ORDERS Category Date Time Status Urine Culture Stat Micro 10/17/21 16:28 Ordered [place] HPI - General Stated complaint: possible uti Time Seen by Provider: 10/17/21 16:25 Mode of Arrival: Ambulatory Source of Information: Patient Limitations: No Limitations Description of Symptoms (Recalled from Triage Doc. by RN): PATIENT C/O ITCHING TO GENITAL AREA X 2 DAYS HEENT Symptoms (Recalled from RN notes): No Resp Symptoms (Recalled from RN notes): No Skin Symptoms (Recalled from RN notes): No MS Symptoms (Recalled from RN notes): No Functional Status (Recalled from RN notes): WNL - History of Present Illness Provider Complaint: Patient states that states that she gets frequent UTI and has been seeing Dr Ibrahim States that for the last couple of days she has been having burning with urination, frequent urination and itching like she gets when she has a yeast infection
[2021-10-17 16:32] LABS: Apearance,Urine Cloudy (Clear); Color,Urine Yellow (Yellow); Glucose,Urine (UA) Negative (Negative); Protein,Urine Negative (Negative)
[2021-10-17 16:33] LABS: Bilirubin,Urine Negative (Negative); Blood, Urine Trace (Negative); Ketones,Urine Negative (Negative); UTC Leukocyte Esterase,Urine Trace (Negative); UTC Nitrate,Urine Positive (Negative); Urobilinogen,Urine 0.2 EU/dl (0.2)
[2021-10-17 16:37] VITALS: BP 121/78; PULSE 86; RESP 16; TEMP 36.8; O2SAT 98
== END 2021-10-17 16:40 | disposition home or self-care (01) ==
PROVIDERS: Emergency Provider Nurse Practitioner
DX: N39.0 Urinary tract infection, site not specified (principal); B96.20 Unspecified Escherichia coli [E. coli] as the cause of diseases classified elsewhere; F17.210 Nicotine dependence, cigarettes, uncomplicated
CPT/HCPCS: 81003; 87086; 87088; 87186; 99212; G0463

== ENCOUNTER 2022-04-19 13:52 | Emergency (ER) | payer OTHER, SELFPAY ==
[2022-04-19 14:40] VITALS: BP 125/83; PULSE 88; RESP 22; TEMP 36.9; O2SAT 97; BMI 20.9
--- NOTE | 2022-04-19 15:06 | EXP.UTC ---
Discharge Plan Disposition Patient Disposition: Home, Self-Care Condition: Good Prescriptions Prescriptions: New fluconazole [Diflucan] 100 mg tablet 100 mg PO DAILY Qty: 3 0RF Rx Instructions: Take one tablet daily for 3 days. acyclovir 400 mg tablet 400 mg PO TID 5 Days Qty: 15 0RF Referrals Follow up/Referrals: Provider,Referral, MD [Primary Care Provider] - See instructions Clinical Impressions Clinical Impression: Acute candidiasis of vulva and vagina, Recurrent cold sores Instructions Patient Instructions: DI for Vaginal Yeast Infection, DI for Cold Sores Discharge ED Provider: Laura Fonseca [facility] General Stated complaint: possible yeast infection Mode of Arrival: Ambulatory Source of Information: Patient Limitations: No Limitations Time Seen by Provider: 04/19/22 15:06 Description of Symptoms (Recalled from Triage Doc. by RN): yeast infection HEENT Symptoms (Recalled from RN notes): No Resp Symptoms (Recalled from RN notes): No Skin Symptoms (Recalled from RN notes): No MS Symptoms (Recalled from RN notes): No Functional Status (Recalled from RN notes): n/a Related Data Previous Rx's Medication Instructions Recorded acyclovir 400 mg tablet 400 mg PO TID 5 days #15 tabs 04/19/22 fluconazole 100 mg tablet 100 mg PO DAILY #3 tabs 04/19/22 (Diflucan) Allergies Allergy/AdvReac Type Severity Reaction Status Date / Time No Known Allergies Allergy Verified 04/19/22 14:43 Worker's Comp Is this a Worker's Comp case?: No [facility] Disclaimer: The information contained in this section may have been updated after the patient was seen, as this information can be updated by other users. Social History Smoking Status: Current every day smoker tobacco type: cigarettes packs per day: 1 second hand exposure: No alcohol intake: never substance use type: denies use current occupational status: other Travel in the last 8 weeks: None household members: none housing: house current occupation: state current occupational exposures/hazards: No caffeine: Yes ROS Obtained: Yes All systems reviewed & no additional complaints except as documented Constitutional Constitutional: Reports system reviewed and no additional complaints, except as documented Eyes Eyes: Reports system reviewed and no additional complaints, except as documented ENT Comments: states that she feels a cold sore coming on and is currently out of her medication. Cardiovascular Cardiovascular: Reports system reviewed and no additional complaints, except as documented Respiratory Respiratory: Reports system reviewed and no additional complaints, except as documented Gastrointestinal Gastrointestingal: Reports system reviewed and no additional complaints, except as documented Genitourinary Female Genitourinary: Reports dyspareunia, Reports genital pruritis, Reports vaginal discharge, Reports vaginal odor and Reports vaginal pruritus Musculoskeletal Musculoskeletal: Reports system reviewed and no additional complaints, except as documented Integumentary/Breasts Skin/Breast: Reports system reviewed and no additional complaints, except as documented Neurologic Neurologic: Reports system reviewed and no additional complaints, except as documented Endocrine Endocrine: Reports system reviewed and no additional complaints, except as documented Hematologic/Lymphatic Henatologic/Lymphatic: Reports system reviewed and no additional complaints, except as documented Allergic/Immunologic Allergic/Immunologic: Reports system reviewed and no additional complaints, except as documented Physical Exam General General appearance: alert and in no apparent distress Head Head exam: atraumatic and normocephalic Eye Eye exam: Present normal appearance ENT ENT exam: Present normal exam and normal oropharynx Expanded ENT Exam External ear exam: Present normal external inspection Nasal speculum exam: Bilateral:
[2022-04-19 15:25] VITALS: BP 128/68; PULSE 89; RESP 20; TEMP 36.4; O2SAT 99
== END 2022-04-19 15:25 | disposition home or self-care (01) ==
PROVIDERS: Emergency Provider Nurse Practitioner Family
DX: B37.31 Acute candidiasis of vulva and vagina (principal); B00.1 Herpesviral vesicular dermatitis
CPT/HCPCS: 99212; G0463

== ENCOUNTER → 2022-09-23 14:24 | Outpatient (CLI) | payer OTHER, SELFPAY ==
--- NOTE | 2022-09-23 14:29 | XR_ITS ---
FINAL REPORT CLINICAL HISTORY: Cervical pain x mos, NKT. Mostly Lt sided radiating down Lt arm. FINDINGS: Three views were obtained. There is no acute fracture. There is no malalignment. The disc spaces are maintained. IMPRESSION: No acute process. Reviewed, Interpreted and Dictated by Que Bennett MD Transcribed by Kana Muniz Authenticated and [facility]
== END ==
LOC: RAD 14:25
PROVIDERS: PCP Nurse Practitioner Family; Visit Provider Nurse Practitioner Family
DX: M54.2 Cervicalgia (principal)
CPT/HCPCS: 72040

== ENCOUNTER 2023-04-20 11:19 | Emergency (ER) | payer SELFPAY ==
[2023-04-20 11:35] VITALS: BP 135/91; PULSE 94; RESP 20; TEMP 36.9; O2SAT 98; BMI 21.7
[2023-04-20 11:54] LABS: Apearance,Urine Cloudy (Clear); Bilirubin,Urine Negative (Negative); Blood, Urine 1+ (Negative); Color,Urine Yellow (Yellow); Glucose,Urine (UA) Negative (Negative); Ketones,Urine Negative (Negative); PH,Urine 7.5 (5.0-8.5); Protein,Urine Negative (Negative); UTC Leukocyte Esterase,Urine Trace (Negative); UTC Nitrate,Urine Negative (Negative); Urobilinogen,Urine 0.2 EU/dl (0.2)
--- NOTE | 2023-04-20 11:56 | ED_ITS ---
Discharge Plan Disposition Patient Disposition: Home, Self-Care Condition: Good Prescriptions Prescriptions: New benzonatate 100 mg capsule 100 mg PO TID PRN (Reason: cough) Qty: 30 0RF cefdinir 300 mg capsule 300 mg PO BID Qty: 20 0RF Referrals Follow up/Referrals: Jason Fatima MD [Primary Care Provider] - See instructions Activity Restrictions/Add. Instructions Additional Instructions/Restrictions: *Increase fluids. Water not Soda or Tea *Start antibiotic immediately and be sure to take as ordered for the FULL length of time although you should start to see improvement over the next 48 hours Be SURE to follow up anytime for new or worsening symptoms with your family doctor. AND in 48 hours for urine culture results with your family doctor, if you do not have a doctor then you may call back to the [facility] for urine culture results and further treatment. We do recommend that you choose and establish care with a Primary Care Physician. ?AND follow up with them ?in 10-14 days to repeat UA to ensure infection is resolved and blood no longer present *Be sure to let your PCP know that we sent urine cultures from the [facility] so they can follow up to ensure that you area the on the correct antibiotic Call your doctor office and make appointment for 48 hours (2 days from today) ?to follow up and get the results of your urine culture and further treatment Clinical Impressions Clinical Impression: UTI (urinary tract infection) Qualifiers: Urinary tract infection type: site unspecified Hematuria presence: with hematuria Qualified Code(s): N39.0 - Urinary tract infection, site not specified ; R31.9 - Hematuria, unspecified Instructions Patient Instructions: DI for Urinary Tract Infection (UTI), DI for Sinusitis Discharge ED Provider: Melina Poon [facility] [place] General Stated complaint: UTI PAIN Mode of Arrival: Ambulatory Source of Information: Patient Limitations: No Limitations Time Seen by Provider: 04/20/23 11:56 Description of Symptoms (Recalled from Triage Doc. by RN): PATIENT C/O COUGH X 3 WEEKS. SHE ALSO REPORTS BLADDER PRESSURE AND FOUL ODOR TO URINE SINCE THURSDAY HEENT Symptoms (Recalled from RN notes): No Resp Symptoms (Recalled from RN notes): Yes Skin Symptoms (Recalled from RN notes): No MS Symptoms (Recalled from RN notes): No Functional Status (Recalled from RN notes): WNL History of Present Illness Provider Complaint: Patient states that she has been having cough and sinus congestion for about 3 weeks on and off States that for the last couple of days she noticed she was having some pressure in her lower abdomen and felt like she was urinating more frequently and having urgency States that she also noticed her urine has a strong odor so today she came in to get checked Related Data Previous Rx's Medication Instructions Recorded benzonatate 100 mg capsule 100 mg PO TID PRN cough #30 caps 04/20/23 cefdinir 300 mg capsule 300 mg PO BID #20 caps 04/20/23 Allergies Allergy/AdvReac Type Severity Reaction Status Date / Time No Known Allergies Allergy Verified 04/19/22 14:43 Worker's Comp Is this a Worker's Comp case?: No [facility] Disclaimer: The information contained in this section may have been updated after the sharlene james was seen, as this information can be updated by other users. 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 caffeine: Yes ROS Obtained: Yes All systems reviewed & no additional complaints except as documented and Yes Systems reviewed as appropriate & no additional complaints except as documented Constitutional Constitutional: Reports system reviewed and no additional complaints, except as documented, Reports as per HPI, Denies body ache, Denies chills and Denies fever(s) ENT Ears, Nose, Mouth, and Throat: Reports system reviewed and no additional complaints, except as documented, Reports as per HPI, Reports sinus pain and Reports sinus pressure Cardiovascular Cardiovascular: Reports system reviewed and no additional complaints, except as documented and Reports as per HPI Respiratory Respiratory: Reports system reviewed and no additional complaints, except as documented, Reports as per HPI and Reports cough Gastrointestinal Gastrointestingal: Reports system reviewed and no additional complaints, except as documented and as per HPI; Denies abdominal pain, nausea or vomiting Genitourinary Female Genitourinary: Reports system reviewed and no additional complaints, except as documented, Reports as per HPI, Reports urinary frequency, Reports urinary urgency and Reports other (strong odor to urine) Physical Exam General General appearance: alert and in no apparent distress ENT ENT exam: Present mucous membranes moist Expanded ENT Exam Nose exam: Present sinus tenderness Respiratory Respiratory exam: Present normal lung sounds bilaterally; Absent respiratory distress or wheezes Cardiovascular Cardiovascular exam: Present regular rate, normal rhythm and normal heart sounds Abdominal Exam Abdominal exam: Present soft and normal bowel sounds; Absent distention or tenderness Neurological Exam Neurological exam: Present alert, oriented X3 and normal gait Medical Decision Making Blas Inquiry Pt receiving controlled substance: No Blas was queried for this patient: No Vital Signs: 04/20/23 11:35 Temperature 98.4 F Temperature Source Oral Pulse Rate [Left Brachial] 94 H Respiratory Rate 20 Blood Pressure [Left Arm] 135/91 H Blood Pressure Mean [Left Arm] 105 Blood Pressure Source [Left Arm] Automatic Cuff Blood Pressure Position [Left Arm] Sitting 02 Sat by Pulse Oximetry 98 Oxygen Delivery Method Room Air Lab Data Lab results reviewed: Yes I reviewed the patient's lab results. Lab Results 04/20/23 11:51: Urine Color Yellow, Urine Appearance Cloudy, Urine pH 7.5, Ur Specific Lane 1.020, Urine Protein Negative, Urine Glucose (UA) Negative, Urine Ketones Negative, Urine Blood 1+, Urine Nitrate Negative, Urine Bilirubin Negative, Urine Urobilinogen 0.2, Ur Leukocyte Esterase Trace Orders (Tests/Meds): ORDERS Category Date Time Status Urine Culture Stat Micro 04/20/23 11:38 Received
[2023-04-20 12:14] VITALS: BP 135/91; PULSE 94; RESP 20; TEMP 36.9; O2SAT 98
== END 2023-04-20 12:17 | disposition home or self-care (01) ==
PROVIDERS: Emergency Provider Nurse Practitioner; PCP Family Medicine
DX: N39.0 Urinary tract infection, site not specified (principal); R05.9 Cough, unspecified; R09.81 Nasal congestion; F17.210 Nicotine dependence, cigarettes, uncomplicated
CPT/HCPCS: 81003; 87086; 99212; 99214; G0463

== ENCOUNTER 2023-07-31 15:09 | Outpatient (CLI) | payer OTHER, SELFPAY ==
--- NOTE | 2023-07-31 15:17 | XR_ITS ---
FINAL REPORT CLINICAL HISTORY: LT ANKLE PAIN FINDINGS: LEFT ANKLE Three views demonstrate no acute fracture or dislocation. The mortise is intact. There is a small joint effusion seen on the lateral view. Moderate soft tissue swelling is noted. IMPRESSION: Soft tissue swelling and a small joint effusion with no definite acute fracture identified. Reviewed, Interpreted and Dictated by Que Bennett MD Transcribed by Neelam Henry Authenticated and [facility]
== END 2023-07-31 23:59 | disposition home or self-care (01) ==
LOC: RAD 15:11
PROVIDERS: PCP Family Medicine; Visit Provider Family Medicine
DX: M25.572 Pain in left ankle and joints of left foot (principal)
CPT/HCPCS: 73610

== ENCOUNTER 2023-08-09 09:45 | Emergency (ER) | payer OTHER, SELFPAY ==
[2023-08-09 09:55] VITALS: BP 137/77; PULSE 83; RESP 18; TEMP 36.6; O2SAT 98; BMI 23.3
--- NOTE | 2023-08-09 10:07 | ED_ITS ---
Discharge Plan Disposition Patient Disposition: Home, Self-Care Condition: Good Prescriptions Prescriptions: New cephalexin 500 mg tablet 500 mg PO BID 7 Days Qty: 14 0RF No Action famotidine 20 mg tablet 20 mg PO BID Qty: 120 4RF omeprazole 20 mg capsule,delayed release(DR/EC) 40 mg PO DAILY Qty: 60 2RF Rx Instructions: take one in the am and the other in the pm before bed. esomeprazole magnesium 20 mg capsule,delayed release(DR/EC) 40 mg PO DAILY Qty: 30 2RF Rx Instructions: 1 in am and 1 at night montelukast 10 mg tablet 10 mg PO DAILY Patient Comments: TAKE 1 TABLET BY MOUTH ONCE DAILY loratadine 10 mg tablet 10 mg PO DAILY Patient Comments: TAKE 1 TABLET BY MOUTH ONCE DAILY Referrals Follow up/Referrals: Jason Fatima MD [Primary Care Provider] - See instructions Activity Restrictions/Add. Instructions Additional Instructions/Restrictions: Increase fluids, water and not soda or tea. Can drink cranberry juice or cranberry extract. Wipe front to back Wear cotton underwear Empty bladder after intercourse Start antibiotics immediately and make sure you take the full course although you may start to see improvement over the next 48 hours. You can eat yogurt or take probiotics to decrease diarrhea or yeast infection caused by the antibiotic Be sure to follow-up anytime for new or worsening symptoms in 48 hours for wound urine culture results be sure to let you PCP no recent urine for culture so they can request records and ensure that you have appropriate antibiotic if you are not getting better or getting worse. If symptoms worsen or do not improve return or be seen in the ER. Follow-up with primary care this week. Clinical Impressions Clinical Impression: UTI (urinary tract infection) Instructions Patient Instructions: DI for Urinary Tract Infection (UTI) Discharge ED Provider: Vidal ([facility] [place] HPI General Stated complaint: back pain burning urination Mode of Arrival: Ambulatory Source of Information: Patient Limitations: No Limitations Time Seen by Provider: 08/09/23 10:07 Description of Symptoms (Recalled from Triage Doc. by RN): Pt's symptoms are pressure with urination, and buring with urination. HEENT Symptoms (Recalled from RN notes): Yes Resp Symptoms (Recalled from RN notes): No Skin Symptoms (Recalled from RN notes): No MS Symptoms (Recalled from RN notes): No Functional Status (Recalled from RN notes): n/a History of Present Illness Provider Complaint: 48 yr old female presents for burning and pressure with urination Related Data Home Medications Medication Instructions Recorded Confirmed loratadine 10 mg tablet 10 mg PO DAILY 08/09/23 08/09/23 montelukast 10 mg tablet 10 mg PO DAILY 08/09/23 08/09/23 Previous Rx's Medication Instructions Recorded famotidine 20 mg tablet 20 mg PO BID #120 tabs 06/01/23 esomeprazole magnesium 20 mg 40 mg (2 x 20 mg) PO DAILY #30 caps 07/13/23 capsule,delayed release omeprazole 20 mg capsule,delayed 40 mg (2 x 20 mg) PO DAILY #60 caps 07/13/23 release cephalexin 500 mg tablet 500 mg PO BID 7 days #14 tabs 08/09/23 Allergies Allergy/AdvReac Type Severity Reaction Status Date / Time No Known Allergies Allergy Verified 08/09/23 10:05 Worker's Comp Is this a Worker's Comp case?: No [facility] Disclaimer: The information contained in this section may have been updated after the patient was seen, as this information can be updated by other users. 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 caffeine: Yes ROS Obtained: Yes All systems reviewed & no additional complaints except as documented Constitutional Constitutional: Reports system reviewed and no additional complaints, except as documented Eyes Eyes: Reports system reviewed and no additional complaints, except as documented ENT Ears, Nose, Mouth, and Throat: Reports system reviewed and no additional complaints, except as documented Cardiovascular Cardiovascular: Reports system reviewed and no additional complaints, except as documented Respiratory Respiratory: Reports system reviewed and no additional complaints, except as documented Gastrointestinal Gastrointestingal: Reports system reviewed and no additional complaints, except as documented Genitourinary Female Genitourinary: Reports system reviewed and no additional complaints, except as documented, Reports as per HPI, Reports dysuria, Reports urinary frequency, Reports urinary hesitancy and Reports urinary urgency Musculoskeletal Musculoskeletal: Reports system reviewed and no additional complaints, except as documented Neurologic Neurologic: Reports system reviewed and no additional complaints, except as documented Endocrine Endocrine: Reports system reviewed and no additional complaints, except as documented Hematologic/Lymphatic Henatologic/Lymphatic: Reports system reviewed and no additional complaints, except as documented Allergic/Immunologic Allergic/Immunologic: Reports system reviewed and no additional complaints, except as documented Physical Exam General General appearance: alert and in no apparent distress Head Head exam: atraumatic Eye Eye exam: Present normal appearance Respiratory Respiratory exam: Present normal lung sounds bilaterally Cardiovascular Cardiovascular exam: Present regular rate and normal rhythm Neurological Exam Neurological exam: Present alert and oriented X3 Skin Skin exam: Present warm and intact Medical Decision Making Medical Records Medical records reviewed: Yes I reviewed the patient's medical records. Blas Inquiry Pt receiving controlled substance: No Blas was queried for this patient: No Vital Signs: 08/09/23 09:55 Temperature 97.9 F Temperature Source Oral Pulse Rate [Right Radial] 83 Respiratory Rate 18 Blood Pressure [Right Arm] 137/77 Blood Pressure Mean [Right Arm] 97 Blood Pressure Source [Right Arm] Automatic Cuff Blood Pressure Position [Right Arm] Sitting 02 Sat by Pulse Oximetry 98 Oxygen Delivery Method Room Air Lab Data Lab results reviewed: Yes I reviewed the patient's lab results. Orders (Tests/Meds): ORDERS Category Date Time Status Urine Culture Stat Micro 08/09/23 10:02 Ordered
[2023-08-09 10:08] LABS: Color,Urine Yellow (Yellow)
[2023-08-09 10:09] LABS: Apearance,Urine Cloudy (Clear); Bilirubin,Urine Negative (Negative); Blood, Urine 2+ (Negative); Glucose,Urine (UA) Negative (Negative); Ketones,Urine Negative (Negative); Protein,Urine 1+ (Negative); Specific Gravity, Urine 1.025 (1.005-1.030); UTC Leukocyte Esterase,Urine 2+ (Negative); UTC Nitrate,Urine Negative (Negative); Urobilinogen,Urine 0.2 EU/dl (0.2)
--- NOTE | 2023-08-09 10:09 | PC.NURSE ---
Sent urine to lab via tube system
[2023-08-09 10:36] VITALS: BP 137/77; PULSE 83; RESP 18; TEMP 36.6; O2SAT 98
== END 2023-08-09 10:36 | disposition home or self-care (01) ==
PROVIDERS: Emergency Provider Nurse Practitioner Family; PCP Family Medicine
DX: N39.0 Urinary tract infection, site not specified (principal); B96.29 Other Escherichia coli [E. coli] as the cause of diseases classified elsewhere; R30.0 Dysuria; F17.210 Nicotine dependence, cigarettes, uncomplicated
CPT/HCPCS: 81003; 87086; 99212; 99214; G0463

== ENCOUNTER 2023-08-13 15:49 | Outpatient (RCR) | payer OTHER, SELFPAY ==
--- NOTE | 2023-08-17 21:02 | HMH.PTOPEV ---
PT Outpatient Evaluation Rehab PT Outpatient Evaluation Start: 08/17/23 20:43 Freq: Status: Active Protocol: Document 08/13/23 16:00 JUSTICE (Rec: 08/17/23 21:02 JUSTICE [id number]) E-signed By Umair Francois, PT Outpatient Therapy Subjective History Subjective History Patient is a 48 year old female presenting to outpatient PT with reports of L foot/ankle pain. Symptom onset starting approx 5 months ago after jumping off the bed of a truck. Symptoms consistent with L inversion ankle sprain. TTP L ATFL/ distal fibular head. Comorbidities include hx of GERD. Most recent imaging -. New diagnosis of cancer in past 12 No months? Chief Complaint Pain,Stiff Symptom Type Ache,Sharp,Dull Symptoms Relieved By Rest/Positioning,Ice Symptoms Aggravated By Standing,Physical Activity, Walking Prior Functional Limitations None Current Functional Limitations Housework,Standing,Walking Symptom Description Intermittent Level of pain today (0-10) 0 Pain scale - at its best (0-10) 0 Pain scale - at its worst (0-10) 7 Ankle/Foot Eval Gait Observation General Gait Pattern Observation Antalgic Gait,Decrease Weight Bear (L) Assistive Device Ambulation Assistive Device None Palpation Tenderness left Ankle/Foot Palpation Findings Tenderness ATF TTP positive ROM Ankle/Foot Dorsiflexion w/Knee Extended 3 Active Range Motion (degrees) Ankle/Foot Plantar Flexion Active Range WNL of Motion (degrees) Ankle/Foot Eversion Active Range of 16 Motion (degrees) Ankle/Foot Inversion Active Range of 11 Motion (degrees) Ankle/Foot ROM Limitations Soft Tissue Tightness Great Toe ROM Reason Not Measured Within Functional Limits MMT Ankle Dorsiflexion Strength Grade 5 Normal Ankle Plantarflexion Strength Grade 5 Normal Foot Eversion Strength Grade 4 Good Foot Inversion Strength Grade 4 Good Special Tests Ankle Anterior Drawer Test Negative Right,Positive Left Foot Interdigital Neuroma Test Negative Left,Negative Right Lower Extremity Functional Index Activities Today, do you or would you have any difficulty at all with: a.Any of your usual work, housework or Quite a bit of difficulty school activities b. Your usual hobbies, recreational or Quite a bit of difficulty sporting activities c. Getting into or out of the bath No difficulty d. Walking between rooms Quite a bit of difficulty e. Putting on your shoes or socks No difficulty f. Squatting Quite a bit of difficulty g. Lifting an object, like a bag of No difficulty groceries from the floor h. Performing light activities around No difficulty your home i. Performing heavy activities around Quite a bit of difficulty your home j. Getting into or out of a car No difficulty k. Walking 2 blocks Moderate difficulty l. Walking a mile Moderate difficulty m. Going up or down 10 stairs (about 1 Moderate difficulty flight of stairs) n. Standing for 1 hour Quite a bit of difficulty o. Sitting for 1 hour No difficulty p. Running on even ground No difficulty q. Running on uneven ground Extreme difficulty or unable to perform activity r. Making sharp turns while running fast Extreme difficulty or unable to perform activity s. Hopping Extreme difficulty or unable to perform activity t. Rolling over in bed No difficulty LEFI Score Lower Extremity Functional Index Score 44 Outpatient Therapy Assessment Impairments Problems/Impairmments Palpation Tenderness,Impaired Range of Motion,Impaired Strength,Impaired Walking, Impaired Standing,Impaired Household Care,Impaired Stair Climbing,Impaired Incline Stepping,Impaired Stepping on Uneven Surface,Impaired Squatting,Impaired Bending, Impaired Recreational Activities,Impaired Work Activities,Subjective C/O Pain Prognosis Rehab Potential Good Clinical Impression Consistent with Diagnosis Yes Short Term Goals Number of Weeks 2 Decrease Subjective C/O Pain Yes: 08/13 at worst Patient to be Ind w/ HEP Yes Information Technology Consultant Goals Number of Weeks 4-6 Decreased Palpation Tenderness Yes: 1/ Increase Range of Motion Yes: WNL all planes Increase Strength Yes: 5/5 Increase Ability to Walk Yes: 45 min without difficulty Increase Ability to Stand Yes: Improve Ability to Climb Stairs Yes: 1 flight without difficulty Decrease Subjective C/O Pain Yes: 05/16 at worst Outpatient Therapy Plan of Care Treatment Plan May Include Therapeutic Exercise Including Home Yes Exercise Program Manual Therapy Techniques Yes Neuromuscular Re-education Yes Therapeutic Activities to Return to Yes Previous Functional/Work Level Gait Training Yes ADL/Self Care Education Yes Dry Needling Yes Thermal Modalities Yes Electrical Stimulation Yes Ultrasound/Phonophoresis Yes Iontophoresis Yes Orthotics/Bracing/Splinting Yes Vasopneumatic Compression Pump Yes Massage Yes Manual Lymphatic Drainage Yes Eval/Re-Eval Yes Frequency Times per week 2 Duration Number of Weeks 4-6 Addendums This patient is a candidate for social No or vocational rehab? Patient/Guardian verbally acknowledges Yes understanding of treatment program and consents to further treatment? Patient/Guardian verbally acknowledges Yes understanding of diagnosis, prognosis and goals for treatment? Eval Complexity PT Charges 59362 - Low Complexity Shoulder/Elbow Eval Shoulder Objective Measurements Elbow Objective Measurements PHYSICIAN CERTIFICATION: I certify the specified therapy services for Emiliana Arias are required, authorized, and reviewed every 30 days.
== END 2023-08-13 15:50 | disposition home or self-care (01) ==
LOC: PT 15:49
PROVIDERS: Visit Provider Family Medicine
DX: M25.572 Pain in left ankle and joints of left foot (principal); M25.472 Effusion, left ankle
CPT/HCPCS: 97163

== ENCOUNTER 2023-12-21 09:38 | Day surgery (SDC) | payer OTHER, SELFPAY ==
[2023-12-15 13:10] VITALS: BMI 21.7
[2023-12-21 09:55] VITALS: BP 141/99; PULSE 92; RESP 18; TEMP 36.8; O2SAT 99
--- NOTE | 2023-12-21 09:56 | P.PNANES_ITS ---
[facility] Disclaimer: The information contained in this section may have been updated after the patient was seen, as this information can be updated by other users. Medical History GERD (gastroesophageal reflux disease) Urinary tract infection Surgical History History of tubal ligation Family History Grandmother Cancer Grandfather Cancer Family/Other Cancer Mother Thyroid disorder Sister Thyroid disorder Social History Smoking Status: Current every day smoker tobacco type: cigarettes packs per day: 1 second hand exposure: No alcohol intake: never substance use type: denies use current occupational status: other Travel in the last 8 weeks: None household members: none housing: house current occupation: state current occupational exposures/hazards: No caffeine: Yes [facility] Anesthesia Checklist Patient Identification Patient Identification: Arm Band and Verbal (Name & ) Structural Data Admitted From: Home Planned Operative Procedure/s: EGD Consent for Planned Operative Procedure(s) Verified: Yes Verified Documents: Surgical Consent and History and Physical NPO Status Verified Time NPO: 00:00 Additional verifications Anesthesia Reactions: No Airway Assessment Mallampati Score:: Class III C-Spine Mobility Assessed: Yes TMJ Mobility Assessed: Yes Dentition: Good Dentition Neurological Assessment Level of Consciousness: Awake Hx Seizures: No Numbness or tingling in extremities: No Anesthesia Plan Anesthesia Risk discussed: Yes Anesthesia Plan: Verified ASA Class: I Anesthesia Type: MAC
[2023-12-21] MEDS: LACTATED RINGERS 1000ML 1,000 ML 25 ML IV (10:01)
[2023-12-21 10:02] LABS: Urine Pregnancy, HCG Qual. Negative (Negative)
[2023-12-21 10:06] VITALS: O2SAT 99
--- NOTE | 2023-12-21 10:20 | HMH.PROCNOTE ---
[facility] Procedure Note Date: 12/21/23 Time: 10:20 Procedure Note:: Upper Endoscopy Procedure Report: Esophagogastroduodenoscopy with cold biopsies and TTS balloon dilation Endoscopost: Srinath Eastman II, MD Referring Physician: Jason Fatima MD/GENARO Eastman Date of Procedure: December 21, 2023 Equipment: Olympus GIF 190 standard upper endoscope Sedation: MAC sedation Indications: Mrs. Arias is a 48-year-old female who is here for diagnostic evaluation of her globus sensation. She has had globus/ lump in her throat for approximately 1 year. Her laryngoscopy showed no abnormalities. She has tried omeprazole 40 mg p.o. daily and twice daily which did not improve her symptoms. She does report frequent clearance of the throat but no hoarseness. She reports no dysphagia but has had choking in the past. She reports no heartburn but does get occasional reflux. She also notes some coughing. She reports occasional belching. She has noted some bloating, fullness, early satiety and occasional dyspepsia. She reports no chest pain. She has normal bowel function. This is her first upper endoscopy. Procedure: Prior to the procedure, a history and physical exam was performed, and patient's medications and allergies were reviewed. The risks, benefits and alternatives of the sedation and procedure were discussed with the patient. All questions were answered and informed consent was obtained. The patient was brought to the procedure room. Patient identification and proposed procedure were verified by the physician and the nurse. The patient was placed in a left lateral decubitus position and the scope was passed under direct vision. Throughout the procedure, the patient's blood pressure, pulse, and oxygen saturations were monitored continuously. The upper GI endoscopy was accomplished without difficulty. The patient tolerated the procedure well. Findings: The scope was passed directly into the upper esophagus and advanced to the third portion of the duodenum. The post bulbar duodenum and duodenal bulb were normal but there was some mild flattening of the folds/conniventes and biopsies were taken from the duodenum to rule out celiac disease. The scope was withdrawn through a normal duodenal bulb and pylorus into the stomach. There was some bile reflux with mild linear reactive gastropathy of the prepyloric antrum. There was a mildly granular reticular cobblestone pattern within the body and fundus (type A gastritis) suggestive of H. pylori so biopsies were taken both from the antrum and the lesser curvature to rule out H. pylori. The remainder of the antrum, body and fundus of the stomach were grossly normal. Upon retroflexion there was a small 1 to 2 cm hiatal hernia. 2 biopsies were taken in the antrum and along the lesser curvature for histology to rule out gastritis and/or H pylori. The scope was then withdrawn into the esophagus. There was no evidence of reflux esophagitis or Cabrera's. There was no Schatzki's ring. The mid and proximal esophagus were normal. There was no inlet patch and the remainder of the esophageal mucosa was normal. The entire esophagus was dilated to 60 Turkmen/20 mm with a TTS hydrostatic balloon. There was mild resistance at the cricopharyngeus/cricopharyngeal spasm. Impression: 1. Cricopharyngeal spasm status post dilation to 20 mm 2. Nonerosive GERD with small 1 to 2 cm hiatal hernia 3. Bile reflux with mild linear reactive gastropathy of prepyloric antrum 4. Mild type A gastritis?rule out H. pylori Plan: I will follow-up the biopsies. I will discuss the findings with the patient and family. I do feel that her globus sensation is multifactorial but likely related in part to the cricopharyngeal spasm and duodenal reflux. We will discuss treatment options.
[2023-12-21 10:24] VITALS: BP 109/61; PULSE 92; RESP 18; TEMP 36.1; O2SAT 98
[2023-12-21 10:34] VITALS: BP 108/73; PULSE 82; RESP 18; O2SAT 98
[2023-12-21 10:44] VITALS: BP 109/71; PULSE 79; RESP 18; O2SAT 98
[2023-12-21 11:00] VITALS: BP 108/66; PULSE 81; RESP 18; O2SAT 98
== END 2023-12-21 11:00 | disposition home or self-care (01) ==
PROVIDERS: PCP Family Medicine; Visit Provider Internal Medicine Gastroenterology
PROC: 0DJ08ZZ Inspection of Upper Intestinal Tract, Via Natural or Artificial Opening Endoscopic (ICD-10-PCS; CPT 43235; principal; 2023-12-21 10:30)
DX: K29.70 Gastritis, unspecified, without bleeding (principal); K44.9 Diaphragmatic hernia without obstruction or gangrene; K21.9 Gastro-esophageal reflux disease without esophagitis; K31.9 Disease of stomach and duodenum, unspecified; J39.2 Other diseases of pharynx; Z72.0 Tobacco use
CPT/HCPCS: 43239; 43249; 81025; C1726; J7120

== ENCOUNTER 2024-02-16 16:57 | Outpatient (CLI) | payer OTHER, SELFPAY ==
--- NOTE | 2024-02-16 17:01 | XR_ITS ---
PROCEDURE INFORMATION: Exam: XR Left Foot Complete; Alignment Exam date and time: 02/16/2024 5:03 PM Age: 48 years old Clinical indication: Pain; Foot; Left; Additional info: Foot pain TECHNIQUE: Imaging protocol: Radiologic exam of the left foot. Views: 3 or more views. COMPARISON: CR XR ANKLE WT BEARING LT MIN 3V 02/16/2024 5:03 PM FINDINGS: Bones/joints: No evidence for forefoot or midfoot fracture. Soft tissues: Moderate soft tissue swelling is noted about the ankle. IMPRESSION: Moderate soft tissue swelling is noted about the ankle. No evidence for forefoot or midfoot fracture.
--- NOTE | 2024-02-16 17:01 | XR_ITS ---
PROCEDURE INFORMATION: Exam: XR Left Ankle Exam date and time: 02/16/2024 5:03 PM Age: 48 years old Clinical indication: Pain; Ankle; Left; Additional info: Ankle pain TECHNIQUE: Imaging protocol: Radiologic exam of the left ankle. Views: 3 or more views. COMPARISON: CR XR FOOT WT BEARING LT 3V 02/16/2024 5:03 PM FINDINGS: Bones/joints: There is a small osseous density adjacent to the medial malleolus that may reflect an avulsion injury. No additional fracture or dislocation. No aggressive osseous lesion. Soft tissues: There is diffuse soft tissue swelling about the ankle. Soft tissues otherwise within normal limits. IMPRESSION: There is a small osseous density adjacent to the medial malleolus that may reflect an avulsion injury.
== END 2024-02-16 23:59 | disposition home or self-care (01) ==
LOC: RAD 16:59
PROVIDERS: PCP Family Medicine; Visit Provider Nurse Practitioner
DX: S96.912A Strain of unspecified muscle and tendon at ankle and foot level, left foot, initial encounter (principal); M77.52 Other enthesopathy of left foot and ankle; M25.572 Pain in left ankle and joints of left foot; M25.472 Effusion, left ankle
CPT/HCPCS: 73610; 73630

== ENCOUNTER 2024-05-16 17:19 | Outpatient (CLI) | payer OTHER, SELFPAY ==
--- NOTE | 2024-05-16 17:26 | XR_ITS ---
PROCEDURE INFORMATION: Exam: XR Cervical Spine Exam date and time: 05/16/2024 5:27 PM Age: 49 years old Clinical indication: Neck pain; Additional info: Right cervical radiculopathy. States right hand numbness when lying down TECHNIQUE: Imaging protocol: Radiologic exam of the cervical spine. Views: 4 or 5 views. COMPARISON: CR XR CERVICAL SPINE 2V 09/23/2022 2:37 PM FINDINGS: Bones/joints: Mild loss of intervertebral disc space with degenerative changes involving C6-C7. The vertebral bodies are maintained in height and alignment. No evidence of acute osseous abnormality. Soft tissues: Unremarkable. IMPRESSION: 1. Mild loss of intervertebral disc space with degenerative changes involving C6-C7. 2. No evidence of acute osseous abnormality.
== END 2024-05-16 23:59 | disposition home or self-care (01) ==
LOC: RAD 17:20
PROVIDERS: PCP Family Medicine; Visit Provider Family Medicine
DX: M54.12 Radiculopathy, cervical region (principal)
CPT/HCPCS: 72050

== ENCOUNTER 2024-06-08 12:40 | Outpatient (RCR) | payer OTHER, SELFPAY ==
--- NOTE | 2024-06-08 17:34 | HMH.PTOPEV ---
PT Outpatient Evaluation Rehab PT Outpatient Evaluation Start: 06/08/24 12:58 Freq: Status: Active Protocol: Document 06/08/24 12:58 MARK (Rec: 06/08/24 17:34 MARK [id number]) E-signed By Gabrielle Ramírez, PT Outpatient Therapy Subjective History Subjective History Pt is a 49 y/o female who reports chronic neck pain for 6-8 months. Pt denies known trauma or injury. Pt reports gradual worsening of symptoms with onset of R hand pain and paresthesia 3 months ago. Pt reports pain/paresthesia started in the ring & pinky finger then eventually into all fingers and the entire hand. Pt denies pain or paresthesia in the arm. Pt reports only mild discomfort of the lower neck and bilateral upper trapezius muscles that is aggravated by looking down at her phone or on her computer for prolonged periods. Pt reports hand pain & paresthesia occur mostly when laying down and improves with getting up or leaning her head back while on a pillow. Pt reports difficulty sleeping at night time due to this. Pt reports she has been taking prescribed Gabapentin around 10pm which helps her sleep until around 3-4am then pain returns and wakes her up. Pt reports she has noticed decreased R lease attendant strength and altered fine motor skills with difficulty getting dressed in the morning. Pt had a cervical spine radiograph on 05/16/24 with impression of Mild loss of intervertebral disc space with degenerative changes involving C6-C7. No evidence of acute osseous abnormality. Pt denies further comorbidities to report. 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 Chief Complaint Pain,Paresthesia Symptom Type Sharp,Numbness,Tingling Symptoms Relieved By Prescription Meds Current Functional Limitations Dressing,Sleeping,Recreation Activity Symptom Description Intermittent Level of pain today (0-10) 0 Pain scale - at its best (0-10) 0 Pain scale - at its worst (0-10) 9 Cervical Eval Palpation Cervical Muscles R Cervical Paraspinal,R Upper Trapezius Cervical/Thoracic Palpation Findings Tenderness Flexibility Deficits Upper Trapezius Muscle Length (R) Moderate Tightness Levaetor Scapulae Muscle Length (R) Moderate Tightness Passive Joint Mobility Cervical PIVM Dec: R C5/6 R C6/7 R C7/T1 AROM Cervical Spine Extension Active Range of 45 Motion (degrees) Cervical Spine Flexion Active Range of 45 Motion (degrees) Cervical Spine Right Lateral Flexion 45 Active Range of Motion (degrees) Cervical Spine Left Lateral Flexion 45 Active Range of Motion (degrees) Cervical Spine Right Rotation Active 75 Range of Motion (degrees) Cervical Spine Left Rotation Active 75 Range of Motion (degrees) MMT Bilateral Deltoid (C5) 5 Normal Biceps Brachii Strength Grade 5 Normal Wrist Extension Strength Grade 5 Normal Triceps Brachii Strength Grade 5 Normal Wrist Flexion Strength Grade 5 Normal Altered Sensation Upper extremity Dermatomes C7,C8 Comment decreased light touch R compared to L Special Test C-spine Verterbral Accessory Movements Central P/A [place],Right P/A that Elicit Symptoms [place] Shoulder/Elbow Eval Shoulder Objective Measurements Shoulder MMT Bilateral Lower Trapezius Strength Grade 4- Good- Middle Trapezius Strength Grade 4- Good- Upper Trapezius/Levator Scapulae 4 Good Elbow Objective Measurements Neck Disability Index Neck Disability Index Section 1: Pain Intensity The pain is very severe at the moment Section 2: Personal Care (washing, I can look after myself dressing, etc.) normally without causing extra pain Section 3: Lifting I can lift heavy weights without extra pain Section 4: Reading I can read as much as I want with moderate pain in my neck Section 5: Headaches I have moderate headaches, which come infrequently Section 6: Concentration I can concentrate fully when I want to with no difficulty Section 7: Work I can only do my usual work, but no more Section 8: Driving I can drive my car without any neck pain Section 9: Sleeping My sleep is completely disturbed (5-7 hrs sleepless) Section 10: Recreation I am able to engage in most, but not all of my usual recreation NDI Score 16 Outpatient Therapy Assessment Impairments Problems/Impairmments Palpation Tenderness,Impaired Strength,Impaired Work Activities,Impaired Desk/ Computer Activities,Subjective C/O Pain,Impaired Self Care/ Self Management Prognosis Rehab Potential Good Clinical Impression Consistent with Diagnosis Yes Short Term Goals Number of Weeks 3 Decrease Subjective C/O Pain Yes: Improve pain at worst to 7/10 to improve overall QOL Improve Self Care/Self Management Yes: report improved sleep health Patient to be Ind w/ HEP Yes Field Installer Goals Number of Weeks 6 Decreased Palpation Tenderness Yes: 0-1/4 TTP of C5-7, UT/LS cervical mm Increase Strength Yes: Improve scapular strength to 4+/5 grossly to assist with posture/function Improve Ability to Dress Self Yes: report no difficulty with dressing due to hand pain/ paresthesia Improve Tolerance to Desk/Computer Yes: report ability to work a Activities full shift with pain 5/10 or less Improve Neck Disability Index Score Yes: Improve score to 11 or less to improve overall QOL Decrease Subjective C/O Pain Yes: Improve pain at worst to 5/10 to improve overall QOL Improve Self Care/Self Management Yes: Report ability to sleep throughout the night w/o p! disturbance Outpatient Therapy Plan of Care Treatment Plan May Include Therapeutic Exercise Including Home Yes Exercise Program Manual Therapy Techniques Yes Neuromuscular Re-education Yes Therapeutic Activities to Return to Yes Previous Functional/Work Level ADL/Self Care Education Yes Mechanical Traction Yes Dry Needling Yes Thermal Modalities Yes Electrical Stimulation Yes Ultrasound/Phonophoresis Yes Iontophoresis Yes Massage Yes Eval/Re-Eval Yes Frequency Times per week 2 Duration Number of Weeks 4-6 Addendums This patient is a candidate for social No or vocational rehab? Patient/Guardian verbally acknowledges Yes understanding of treatment program and consents to further treatment? Patient/Guardian verbally acknowledges Yes understanding of diagnosis, prognosis and goals for treatment? Eval Complexity PT Charges 86932 - Low Complexity PHYSICIAN CERTIFICATION: I certify the specified therapy services for Emiliana Arias are required, authorized, and reviewed every 30 days.
== END 2024-06-08 23:59 | disposition home or self-care (01) ==
LOC: PT 12:40
PROVIDERS: Visit Provider Family Medicine
DX: M54.12 Radiculopathy, cervical region (principal); M50.90 Cervical disc disorder, unspecified, unspecified cervical region
CPT/HCPCS: 97163

== ENCOUNTER 2024-08-16 07:35 | Outpatient (CLI) | payer OTHER, SELFPAY ==
[2024-08-16 07:48] LABS: Basophils % 0.3 % (0.1-2.0); Eosinophils # 0.3 Kmm3 (0.0-0.4); Eosinophils % 2.8 % (0.1-12.0); Hematocrit 45.9 % (37.0-47.0); Hemoglobin 15.3 g/dL (12.2-16.2); Immature Granulocytes # 0.04 10^3uL; Immature Granulocytes % 0.4 %; Lymphocytes # 2.8 K/mm3 (0.7-4.5); Lymphocytes % 29.7 % (10-50); Mean Corpuscular HGB Conc 33.3 g/dL (31.8-35.4); Mean Corpuscular Hemoglobin 33.1 pg (27.0-31.2); Mean Corpuscular Volume 99.4 fl (81-99); Mean Platelet Volume 8.9 fl (7.4-10.4); Monocytes # 0.7 K/mm3 (0.1-1.0); Monocytes % 7.1 % (1.7-9.3); Neutrophils # 5.6 K/mm3 (1.8-7.8); Neutrophils % 59.7 % (37.0-80.0); Nucleated Red Blood Cells # 0 10^3/uL; Nucleated Red Blood Cells % 0 %; Platelet Count 290 K/mm3 (142-424); Red Blood Count 4.62 M/mm3 (4.20-5.40); Red Cell Distribution Width 12.6 % (11.5-17.5); Red Cell Distribution Width-SD 46.5 fL; White Blood Count 9.4 K/mm3 (4.8-10.8)
[2024-08-16 08:25] LABS: Alanine Aminotransferase 19 U/L (12-78); Albumin Level 4.2 g/dl (3.5-5.0); Albumin/Globulin Ratio 1.8 (1.1-1.8); Alkaline Phosphatase 81 U/L (38-126); Anion Gap 2.9 mEq/L (5-15); Aspartate Amino Transferase 24 U/L (14-36); Bilirubin,Total 0.5 mg/dl (0.2-1.3); Blood Urea Nitrogen 11 mg/dl (7-17); Calcium 9.1 mg/dl (8.4-10.2); Carbon Dioxide 31 mmol/L (22.0-30.0); Chloride 108 mmol/L (98-107); Chol/HDL Ratio 3.9 (1-3.5); Cholesterol 196 mg/dl (140-200); Estimated Glomerular Filt Rate 77 ml/min (>60); GFR (African American) 93 ML/MIN (>60); Globulin 2.4 g/dL (1.3-3.2); Glucose 92 mg/dl (74-100); HDL Cholesterol 50 mg/dl (40-60); Potassium 3.9 mmoL/L (3.5-5.1); Sodium 138 mmol/L (136-145); Total Protein,Serum 6.6 g/dl (6.3-8.2); Triglycerides 134 mg/dl (30-150); VLDL Cholesterol 27 mg/dL (0-40)
--- NOTE | 2024-08-16 08:30 | MM_ITS ---
PROCEDURE INFORMATION: Exam: MG Bilateral Screening 3D Mammography Exam date and time: 08/16/2024 8:23 AM Age: 49 years old Clinical indication: Screening examination. TECHNIQUE: Imaging protocol: Bilateral Screening tomosynthesis and 2D mammography including computer-aided detection (CAD) when performed. COMPARISON: 1. MG MM DIG MAMM DX BI IMPLANT CAD 09/29/2019 8:09 AM 2. MG SCIMPBI MM Dig SC mamm implant BI CAD 05/13/2017 10:05 AM FINDINGS: MAMMOGRAPHY: Breast composition: The breasts are heterogeneously dense, which may obscure small masses. Mass: None. Architectural distortion: None. Calcifications: No suspicious calcifications. Asymmetric density: None. Skin thickening: None. Axillary adenopathy: None. Implants: Prepectoral saline breast implants are present. IMPRESSION: No mammographic evidence of malignancy. Annual screening is recommended unless otherwise clinically indicated. ASSESSMENT: BI-RADS Category 1: Negative.
[2024-08-16 08:35] LABS: Direct LDL Cholesterol 120.51 mg/dL (100-129)
[2024-08-16 08:54] LABS: Thyroid Stimulating Hormone 2.79 uIU/mL (0.465-4.68)
--- NOTE | 2024-08-16 09:00 | XR_ITS ---
FINAL REPORT CLINICAL HISTORY: screening FINDINGS: Using L1-4, the bone mineral density of the spine is 1.065 g/cm2, corresponding to T-score of 0.2, within normal limits. Using the left hip, the bone mineral density of the total hip is 0.864 g/cm2, corresponding to a T-score of -0.6, within normal limits. Using the right hip, the bone mineral density of the total hip is 0.905 g/cm2, corresponding to a T-score of -0.3. FRAX not reported because all T-scores at or above -1.0. NOTE: T-score: Standard deviation compared with peak bone mass of young adult mean. *Following the recommendations of the International Society of Bone densitometry, classification of hip BMD is based on the lower of two T-scores; total hip or femoral neck. IMPRESSION: Normal bone mineral density of the lumbar spine and hips. Reviewed, Interpreted and Dictated by Que Bennett MD Transcribed by Marta Carpio Authenticated and [facility]
[2024-08-17 12:11] LABS: Estradiol 40.1 pg/mL (.); FSH 62.5 mIU/mL (.); LH 47.8 mIU/mL (.); Progesterone 0.3 ng/mL (.)
[2024-08-17 13:11] LABS: Insulin Level Total 4.9 uIU/mL (2.6-24.9)
== END 2024-08-16 23:59 | disposition home or self-care (01) ==
LOC: RAD 07:36
PROVIDERS: PCP Family Medicine; Visit Provider Obstetrics & Gynecology
DX: N95.1 Menopausal and female climacteric states (principal); Z12.31 Encounter for screening mammogram for malignant neoplasm of breast; Z79.3 Long term (current) use of hormonal contraceptives; Z72.0 Tobacco use
CPT/HCPCS: 36415; 77063; 77067; 77080; 80053; 80061; 83001; 83002; 83525; 84144; 84402; 84443; 85025

== ENCOUNTER 2024-08-23 09:58 | Outpatient (CLI) | payer OTHER, SELFPAY ==
[2024-08-23 11:48] LABS: Vitamin B12 368 pg/mL (239-931)
[2024-08-24 12:14] LABS: FSH 50.4 mIU/mL (.)
== END 2024-08-23 23:59 | disposition home or self-care (01) ==
LOC: LAB 09:59
PROVIDERS: PCP Family Medicine; Visit Provider Obstetrics & Gynecology
DX: N95.9 Unspecified menopausal and perimenopausal disorder (principal)
CPT/HCPCS: 36415; 82607; 82746; 83001

== ENCOUNTER 2024-09-12 14:32 | Outpatient (CLI) | payer OTHER, SELFPAY ==
[2024-09-12 15:39] LABS: Basophils % 0.5 % (0.1-2.0); Eosinophils # 0.2 Kmm3 (0.0-0.4); Eosinophils % 2.3 % (0.1-12.0); Hematocrit 45.2 % (37.0-47.0); Hemoglobin 14.8 g/dL (12.2-16.2); Immature Granulocytes # 0.02 10^3uL; Immature Granulocytes % 0.3 %; Lymphocytes # 2.9 K/mm3 (0.7-4.5); Lymphocytes % 37.3 % (10-50); Mean Corpuscular HGB Conc 32.7 g/dL (31.8-35.4); Mean Corpuscular Hemoglobin 32.5 pg (27.0-31.2); Mean Corpuscular Volume 99.1 fl (81-99); Mean Platelet Volume 9.2 fl (7.4-10.4); Monocytes # 0.7 K/mm3 (0.1-1.0); Monocytes % 8.6 % (1.7-9.3); Nucleated Red Blood Cells # 0 10^3/uL; Nucleated Red Blood Cells % 0 %; Platelet Count 301 K/mm3 (142-424); Red Blood Count 4.56 M/mm3 (4.20-5.40); Red Cell Distribution Width 12.8 % (11.5-17.5); Red Cell Distribution Width-SD 47.1 fL; White Blood Count 7.8 K/mm3 (4.8-10.8)
[2024-09-12 15:53] LABS: Activated Partial Thrombo Time 29.3 seconds (22.8-30.6); INR 0.97 (0.9-1.1); Prothrombin Time 10.8 seconds (10.1-12.5)
[2024-09-12 16:16] LABS: Chloride 106 mmol/L (98-107); Potassium 4.3 mmoL/L (3.5-5.1); Sodium 140 mmol/L (136-145)
[2024-09-12 16:18] LABS: Chol/HDL Ratio 4.2 (1-3.5); Cholesterol 228 mg/dl (140-200); HDL Cholesterol 54 mg/dl (40-60); Triglycerides 188 mg/dl (30-150); VLDL Cholesterol 38 mg/dL (0-40)
[2024-09-12 16:19] LABS: Blood Urea Nitrogen 10 mg/dl (7-17); Estimated Glomerular Filt Rate 77 ml/min (>60); GFR (African American) 93 ML/MIN (>60)
[2024-09-12 16:20] LABS: Anion Gap 8.3 mEq/L (5-15); Calcium 9.6 mg/dl (8.4-10.2); Carbon Dioxide 30 mmol/L (22.0-30.0); Glucose 86 mg/dl (74-100)
[2024-09-12 16:28] LABS: Direct LDL Cholesterol 128.68 mg/dL (100-129)
== END 2024-09-12 23:59 | disposition home or self-care (01) ==
PROVIDERS: Orthopaedic Surgery Adult Reconstructive Orthopaedic Surgery; PCP Family Medicine; Visit Provider Family Medicine
DX: Z00.00 Encounter for general adult medical examination without abnormal findings (principal); G56.01 Carpal tunnel syndrome, right upper limb
CPT/HCPCS: 36415; 80048; 80061; 85025; 85610; 85730

== ENCOUNTER 2024-10-27 13:15 | Outpatient (CLI) | payer OTHER, SELFPAY | END 2024-10-27 23:59 | LOC: LAB.DROPOF 10-31 13:17 | PROVIDERS: PCP Family Medicine; Visit Provider Nurse Practitioner Family | DX: R39.15 Urgency of urination (principal) | CPT/HCPCS: 87086; 87186 ==

== ENCOUNTER 2024-11-03 16:26 | Outpatient (CLI) | payer OTHER, SELFPAY ==
--- NOTE | 2024-11-03 | MR_ITS ---
PROCEDURE INFORMATION: Exam: MR Left Lower Extremity Joint Without Contrast; Ankle Exam date and time: 11/03/2024 4:30 PM Age: 49 years old Clinical indication: Pain; Ankle; Left; Additional info: Fall several months ago, pain TECHNIQUE: Imaging protocol: Magnetic resonance imaging of the left lower extremity without contrast. Exam focused on the ankle. COMPARISON: CR XR ANKLE WT BEARING LT MIN 3V 02/16/2024 5:03 PM FINDINGS: Bones/joints: Osseous alignment is normal. There is mild marrow edema in the medial dome of the talus. No discrete fracture. Mild joint space narrowing throughout the ankle joint. Moderate volume of fluid throughout the ankle joint. No significant synovial thickening. LIGAMENTS: Distal tibiofibular syndesmosis: Unremarkable. No tear. Anterior talofibular ligament: Unremarkable. No tear. Posterior talofibular ligament: Unremarkable. No tear. Calcaneofibular ligament: Unremarkable. No tear. Deltoid ligament complex: Unremarkable. No tear. TENDONS: Flexor tendons of foot: Unremarkable as visualized. Tibialis posterior tendon: Unremarkable as visualized. Peroneal tendons: Unremarkable as visualized. Extensor tendons of foot: Unremarkable as visualized. Tibialis anterior tendon: Unremarkable as visualized. Achilles tendon: Unremarkable as visualized. Tarsal canal (Sinus tarsi): Unremarkable. Normal signal of the fat. Tarsal tunnel: Unremarkable. Soft tissues: Mild diffuse subcutaneous soft tissue edema. Plantar fascia: Plantar fascia is unremarkable. IMPRESSION: Moderate volume joint fluid throughout the ankle joint mild degenerative changes as noted. Mild marrow edema in the medial dome of the talus favored to be secondary to early degenerative changes. If there is a history of recent trauma, this may represent mild bone contusion. No acute fracture or internal soft tissue derangement
== END 2024-11-03 23:59 | disposition home or self-care (01) ==
LOC: RAD 16:27
PROVIDERS: Visit Provider Student in an Organized Health Care Education/Training Program
DX: M25.472 Effusion, left ankle (principal); M19.072 Primary osteoarthritis, left ankle and foot; M89.8X7 Other specified disorders of bone, ankle and foot; M65.872 Other synovitis and tenosynovitis, left ankle and foot
CPT/HCPCS: 73721